=== PATIENT | female | born 1985 | race Caucasian/White ===

== ENCOUNTER 2020-07-27 09:38 | Outpatient (REF) | payer OTHER, SELFPAY | END 2020-07-27 09:39 | disposition home or self-care (01) | LOC: HO.LAB 09:38 | PROVIDERS: Visit Provider Internal Medicine | DX: Z20.828 Contact with and (suspected) exposure to other viral communicable diseases (principal) | CPT/HCPCS: C9803; U0003 ==

== ENCOUNTER 2024-11-25 22:19 | Emergency (ER) | payer OTHER, SELFPAY ==
[2024-11-25 22:29] VITALS: BP 103/64; PULSE 65; RESP 17; TEMP 36.9; O2SAT 98; BMI 42.4
--- NOTE | 2024-11-25 23:05 | ED_ITS ---
HPI - Extremity Problem General Chief complaint: Extremity Problem Stated complaint: Cast too tight cutting circulation Time Seen by Provider: 11/25/24 23:05 Source: patient and family ( ) Mode of arrival: ambulatory Limitations: no limitations History of Present Illness ED Provider: Dr. Kapil Duron HPI Narrative: 39-year-old female who has no significant past medical history and presents emergency department for evaluation right ankle and foot pain after having a short-leg cast placed on her legs today by her or [facility]. the patient states that she broke her ankle and foot 2 weeks prior and and initially was placed in a walking boot which was too large and then she was placed in a short-leg walking cast. Patient had this cast replaced today by her orthopedic group. She states that the cast is too tight and she is having pain in her ankle and her foot. She denies any other recent injury her other symptoms. Related Data Allergies Allergy/AdvReac Type Severity Reaction Status Date / Time amoxicillin Allergy Hives Verified 11/25/24 22:33 codeine Allergy Hives Verified 11/25/24 22:33 hydrocodone Allergy Hives Verified 11/25/24 22:33 Review of Systems Review of Systems: Yes all other systems are reviewed and are negative [facility] Social History Social History (System 09/23/23 @ 14:23 by Shannon Colon) Advance Directives: No Advance Directives Information Provided: No Do you have a plan to hurt others: No Plan Physical Exam Vital Signs: Vital Signs: Last Vital Signs Temp 98.5 F 11/25/24 23:13 Pulse 65 11/25/24 23:13 Resp 17 11/25/24 23:13 BP 103/64 11/25/24 23:13 Pulse Ox 98 11/25/24 23:13 O2 Del Method Room Air 11/25/24 23:13 BMI result Body Mass Index 42.4 Vital signs were normal exam right lower extremity: Patient has a short leg fiberglass cast on her right lower extremity. The patient's toes appear to be neurovascularly intact and she has normal sensation. Medical Decision Making Medical Decision Making [facility] Narrative: 39-year-old female who has no significant past medical history and presents emergency department for evaluation right ankle and foot pain after having a short-leg cast placed on her legs today by her or [facility]. The patient's exam revealed normal vital signs, the patient's right lower extremity appears to be neurovascularly intact. Differential diagnosis: Includes but is not limited to Pain secondary to vascular compromise, pain secondary to tight cast application, cellulitis, fracture blisters Course: I initially bifurcated the patient's cast and spread the cast widely however the patient states this did not relieve her pain and she was still had pain in her ankle and foot therefore the cast was removed completely. The cast padding and gauze sleeve were removed. There were no abnormalities noted on the patient's skin and her extremity was neurovascularly intact. The patient states that she is allowed to walk on her foot/ankle , she was not using crutches, she needs to walk in order to work. Therefore the patient was placed in a walking boot which was fitted so that the boot was above the calf but below the knee. The patient states that she felt comfortable in his walking boot and no longer had pain in her ankle and foot area. She was able to walk without any difficulty. Patient was discharged home and advised to contact her orthopedic group for re-evaluation in 2-3 days for re-application of the cast or to discuss remaining in the walking boot. Admission/Observation Consideration of admission/observation: Escalation of care including admission/observation considered (No) Procedures Procedure Narrative Procedure Narrative: Right lower extremity short-leg cast removal: I did discuss the cast removed procedure with the patient and she did give me informed verbal consent. Using the cast saw I bifurcated the cast and removed the cast and the cast padding. There were no lesions or evidence of cellulitis or blisters noted on the patient's skin after the cast padding and cast sleeve was removed. The patient tolerated the procedure well. Discharge Plan Discharge Clinical Impression: Encounter for cast removal, Foot fracture, right, Ankle fracture, right Patient Disposition: Home, Self-Care Additional Instructions: Wear the walking boot until you can be seen by [facility] to get a cast reapplied Continue taking medications as prescribed Follow-up with your doctor in 2 days. Please return to the emergency department if your symptoms get worse or if you develop any symptoms that are concerning to you. Interventions: ED Discharge Assessment Last Done: 11/25/24 23:13 Discharge Date/Time: 11/25/24 23:14 Print Language: [place]
[2024-11-25 23:13] VITALS: BP 103/64; PULSE 65; RESP 17; TEMP 36.9; O2SAT 98
== END 2024-11-25 23:14 | disposition home or self-care (01) ==
PROVIDERS: Emergency Provider Emergency Medicine Emergency Medical Services; PCP Family Medicine
DX: M25.571 Pain in right ankle and joints of right foot (principal); S82.891A Other fracture of right lower leg, initial encounter for closed fracture; X58.XXXA Exposure to other specified factors, initial encounter; Z47.89 Encounter for other orthopedic aftercare; Y93.9 Activity, unspecified; Y92.9 Unspecified place or not applicable; Y99.9 Unspecified external cause status
CPT/HCPCS: 99282